=== PATIENT | male | born 2000 | race Hispanic/Latino ===

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

== ENCOUNTER 2022-09-09 16:25 | Emergency (ER) | payer BC, SELFPAY ==
[2022-09-09] MEDS ORDERED: Ibuprofen 800 MG TAB ONE (17:56)
== END 2022-09-09 19:06 | disposition home or self-care (01) ==
LOC: ERS 16:25
DX: M79.604 Pain in right leg (principal); M62.838 Other muscle spasm
CPT/HCPCS: 99283